=== PATIENT | female | born 1975 | race Caucasian/White ===

== ENCOUNTER 2021-11-24 18:35 | Emergency (ER) | payer BC ==
[~2021-11-24] VITALS: Ht 167.6 cm; Wt 81.6 kg
[~2021-11-24 18:35] MED LIST: TAMO20TA9
[2021-11-24 18:58] VITALS: BP 144/88
[2021-11-24 22:16] VITALS: BP 144/88
--- NOTE | 2021-11-24 22:16 | NUR ---
Patient discharged with v/s stable. Written and verbal after care instructions given and explained. Patient verbalized understanding. Ambulatory with steady gait. All questions addressed prior to discharge. Advised to follow up with PMD.
== END 2021-11-24 22:16 | disposition home or self-care (01) ==
LOC: MED 18:35
DX: R51.9 Headache, unspecified (principal); H92.02 Otalgia, left ear; Z79.899 Other long term (current) drug therapy; Z85.3 Personal history of malignant neoplasm of breast
CPT/HCPCS: 99281